=== PATIENT | female | born 1995 | race Caucasian/White ===

== ENCOUNTER 2022-10-13 23:51 | Emergency (ER) | payer OTHER, MEDICAID ==
[~2022-10-13] VITALS: Ht 175.3 cm; Wt 104.3 kg
[~2022-10-13 23:51] MED LIST: ALBU17AE13; ALBU8.5H8 IH; LAMICTAL; MONT-47 PO; VENL75TA54 PO
[2022-10-14 00:15] VITALS: BP_SYST 131; PULSE 85; RESP 16; TEMP 96.7; O2SAT 100
[2022-10-14] MEDS ORDERED: KETOROLAC TROMETHAMINE 30 MG VIAL IM ONE (02:00)
[2022-10-14 02:20] LABS: CLARITY/URINE HAZY (CLEAR); COLOR,URINE YELLOW (YELLOW)
[2022-10-14 02:21] LABS: BILIRUBIN,URINE NEGATIVE (NEGATIVE); BLOOD, URINE 2+ (NEGATIVE); GLUCOSE,URINE NEGATIVE (NEGATIVE); KETONES,URINE TRACE (NEGATIVE); LEUKOCYTE ESTERASE ,URINE NEGATIVE (NEGATIVE); NITRITE, URINE NEGATIVE (NEGATIVE); PROTEIN URINE NEGATIVE (NEGATIVE); UROBILINOGEN,URINE 0.2 (0.2-1.0)
[2022-10-14 02:23] LABS: BACTERIA,URINE None Seen /HPF (None Seen); WBC,URINE 0-3 /HPF (0-3)
[2022-10-14 02:56] LABS: BASOPHILS # (AUTO) 0.1 K/uL (0.0-0.2); EOSINOPHILS # (AUTO) 0.3 K/uL (0.0-0.4); EOSINOPHILS % (AUTO) 3.1 % (0.0-4.0); HEMATOCRIT 36.5 % (36-48); HEMOGLOBIN 12.4 g/dL (12.0-16.0); LYMPHOCYTES # (AUTO) 3.1 K/uL (1.0-5.5); LYMPHOCYTES % (AUTO) 29.5 % (20.5-51.5); MEAN CORPUSCULAR HEMOGLOBIN 27 pg (27-31); MEAN CORPUSCULAR HGB CONC 34 % (32-36); MEAN CORPUSCULAR VOLUME 79 fL (79.0-98.0); MONOCYTES # (AUTO) 0.8 K/uL (0.0-1.0); MONOCYTES % (AUTO) 8.1 % (1.7-9.3); NEUTROPHILS # (AUTO) 6.1 K/uL (1.8-7.7); NEUTROPHILS % (AUTO) 58.3 % (40.0-70.0); PLATELET COUNT (AUTO) 353 K/uL (130-430); RED BLOOD CELL COUNT(AUTO) 4.65 MIL/uL (4.2-6.2); RED CELL DISTRIBUTION WIDTH 14.3 % (9.0-15.0); WHITE BLOOD COUNT (AUTO) 10.4 K/uL (4.8-10.8)
[2022-10-14 03:14] LABS: CALCIUM 8.1 mg/dL (8.4-11.0); CREATININE 0.61 mg/dL (0.55-1.30); POTASSIUM 3.9 mmol/L (3.5-5.1)
[2022-10-14 03:19] LABS: ALBUMIN 3.2 g/dL (3.4-4.8); TOTAL BILIRUBIN 0.3 mg/dL (0.0-1.0); TOTAL PROTEIN, SERUM 6.1 g/dL (6.4-8.3)
[2022-10-14] MEDS ORDERED: fentaNYL CITRATE/PF 100 MCG/2 ML AMP IM ONE ×2 (04:30→08:45)
[2022-10-14 07:55] VITALS: BP_SYST 133; PULSE 83; RESP 18; TEMP 98; O2SAT 100
[2022-10-14] MEDS ORDERED: fentaNYL CITRATE/PF 100 MCG/2 ML AMP ONE (07:59)
== END 2022-10-14 08:48 | disposition home or self-care (01) ==
LOC: SED 23:51
DX: R10.32 Left lower quadrant pain (principal); J45.909 Unspecified asthma, uncomplicated; Z88.1 Allergy status to other antibiotic agents; Z88.2 Allergy status to sulfonamides; Z79.899 Other long term (current) drug therapy
CPT/HCPCS: 99285; 80053; 81000; 83690; 85025; 36415; 74176; 76830; 76856; 76376; 96372; J1885; J3010

== ENCOUNTER 2022-12-29 11:54 | Emergency (ER) | payer OTHER, MEDICAID ==
[~2022-12-29] VITALS: Ht 175.3 cm; Wt 122.5 kg
[2022-12-29] MEDS ORDERED: ONDANSETRON 4 MG ODT TAB PO ONE (12:15)
[2022-12-29] MEDS ORDERED: PANTOPRAZOLE SODIUM 40 MG TAB PO ONE (12:15)
[2022-12-29 12:24] VITALS: BP_SYST 144; PULSE 114; RESP 20; TEMP 98.2; O2SAT 97
[2022-12-29 12:50] LABS: ACETONE, SERUM NEGATIVE (NEGATIVE)
[2022-12-29 12:54] LABS: BASOPHILS % (AUTO) 0.4 % (0.0-2.0); EOSINOPHILS % (AUTO) 0.1 % (0.0-4.0); HEMATOCRIT 37.6 % (36-48); HEMOGLOBIN 12.5 g/dL (12.0-16.0); LYMPHOCYTES # (AUTO) 0.5 K/uL (1.0-5.5); LYMPHOCYTES % (AUTO) 4.3 % (20.5-51.5); MEAN CORPUSCULAR HEMOGLOBIN 26 pg (27-31); MEAN CORPUSCULAR HGB CONC 33 % (32-36); MEAN CORPUSCULAR VOLUME 78 fL (79.0-98.0); MONOCYTES # (AUTO) 1.3 K/uL (0.0-1.0); MONOCYTES % (AUTO) 11.6 % (1.7-9.3); NEUTROPHILS # (AUTO) 9.7 K/uL (1.8-7.7); NEUTROPHILS % (AUTO) 83.6 % (40.0-70.0); PLATELET COUNT (AUTO) 314 K/uL (130-430); RED CELL DISTRIBUTION WIDTH 13.8 % (9.0-15.0); WHITE BLOOD COUNT (AUTO) 11.6 K/uL (4.8-10.8)
[2022-12-29 12:59] LABS: ANION GAP 11 (5-15); CALCIUM 9.1 mg/dL (8.4-11.0); CARBON DIOXIDE 23 mmol/L (23-29); CHLORIDE 100 mmol/L (98-107); CREATININE 0.91 mg/dL (0.55-1.30); GFR AFRICAN AMERICAN 95 mL/min (>90); GLUCOSE 135 mg/dL (74-106); POTASSIUM 3.6 mmol/L (3.5-5.1); SERUM HCG (QUALITATIVE) NEGATIVE (NEGATIVE); SODIUM SERUM 134 mmol/L (136-145); UREA NITROGEN, BLOOD 12 mg/dL (8-21)
[2022-12-29 13:00] LABS: GFR NON AFRICAN-AMERICAN 78 mL/min (>90)
[2022-12-29 13:03] LABS: ALANINE AMINOTRANSFERASE 23 U/L (12-78); ALBUMIN 3.1 g/dL (3.4-4.8); AMYLASE 56 U/L (0-100); ASPARTATE AMINOTRANSFERASE 10 U/L (10-37); LIPASE 19 U/L (16-77); TOTAL BILIRUBIN 0.9 mg/dL (0.0-1.0); TOTAL PROTEIN, SERUM 7.2 g/dL (6.4-8.3)
[2022-12-29 14:12] LABS: BILIRUBIN,URINE NEGATIVE (NEGATIVE); BLOOD, URINE 1+ (NEGATIVE); CLARITY/URINE TURBID (CLEAR); COLOR,URINE YELLOW (YELLOW); GLUCOSE,URINE NEGATIVE (NEGATIVE); KETONES,URINE 1+ (NEGATIVE); LEUKOCYTE ESTERASE ,URINE 1+ (NEGATIVE); PH,URINE 6.5 (5.0-8.0); PROTEIN URINE 1+ (NEGATIVE)
[2022-12-29 14:13] LABS: BACTERIA,URINE MANY /HPF (None Seen); NITRITE, URINE POSITIVE (NEGATIVE); UROBILINOGEN,URINE 0.2 (0.2-1.0); WBC,URINE 20-50 /HPF (0-3)
[2022-12-29 14:14] LABS: MUCUS,URINE None Seen /LPF (None Seen)
[2022-12-29] MEDS ORDERED: ONDA-8 TL (14:30)
[2022-12-29] MEDS ORDERED: DICYCLOMINE HCL 10 MG/5 ML SOLUTION PO ONE (14:32)
[2022-12-29] MEDS ORDERED: MAG-AL HYDROX/SIMETH 30 ML UDC PO ONE (14:45)
[2022-12-29] MEDS ORDERED: LIDOCAINE VISCOUS 2%, 15 ML UDC PO ONE (14:45)
[2022-12-29 15:02] VITALS: BP_SYST 122; PULSE 114; RESP 20; TEMP 98.2; O2SAT 97
[2022-12-30] MEDS ORDERED: NEU300 PO (02:03)
[2022-12-30] MEDS ORDERED: DULO60CA42 PO (02:03)
[2022-12-30] MEDS ORDERED: FLUT12AE5 IH (02:03)
== END 2022-12-29 15:02 | disposition home or self-care (01) ==
LOC: SED 11:54
DX: K29.70 Gastritis, unspecified, without bleeding (principal); R10.13 Epigastric pain; R11.2 Nausea with vomiting, unspecified; J45.909 Unspecified asthma, uncomplicated; Z88.1 Allergy status to other antibiotic agents; Z88.2 Allergy status to sulfonamides; Z88.8 Allergy status to other drugs, medicaments and biological substances; Z79.899 Other long term (current) drug therapy
CPT/HCPCS: 99284; 76705; 80053; 81000; 82009; 82150; 84703; 83690; 85025; 87086; 36415; 83605; 81015; Q0162; J2001; 81001

== ENCOUNTER 2022-12-30 00:03 | Inpatient (IN) | payer OTHER, MEDICAID ==
[~2022-12-30] VITALS: Ht 175.3 cm; Wt 122.5 kg
[2022-12-30] VITALS (9 sets, daily range): BP systolic 111–129; PULSE 70–103; RESP 16–18; TEMP 97–98.9; O2SAT 95–97
[~2022-12-30 00:03] MED LIST changes: +ONDA-8 TL
[2022-12-30] MEDS ORDERED: METOCLOPRAMIDE HCL 10 MG/2 ML VIAL IVP ONE (00:30)
[2022-12-30] MEDS ORDERED: NACL 0.9% 1,000 ML IV ONE (00:30)
[2022-12-30 01:01] LABS: BASOPHILS % (AUTO) 0.4 % (0.0-2.0); HEMATOCRIT 36.5 % (36-48); HEMOGLOBIN 12.4 g/dL (12.0-16.0); LYMPHOCYTES # (AUTO) 0.7 K/uL (1.0-5.5); LYMPHOCYTES % (AUTO) 6.8 % (20.5-51.5); MEAN CORPUSCULAR HEMOGLOBIN 27 pg (27-31); MEAN CORPUSCULAR HGB CONC 34 % (32-36); MEAN CORPUSCULAR VOLUME 78 fL (79.0-98.0); MONOCYTES # (AUTO) 1.4 K/uL (0.0-1.0); MONOCYTES % (AUTO) 12.6 % (1.7-9.3); NEUTROPHILS # (AUTO) 8.8 K/uL (1.8-7.7); NEUTROPHILS % (AUTO) 80.2 % (40.0-70.0); PLATELET COUNT (AUTO) 326 K/uL (130-430); RED BLOOD CELL COUNT(AUTO) 4.65 MIL/uL (4.2-6.2); RED CELL DISTRIBUTION WIDTH 14.5 % (9.0-15.0)
[2022-12-30 01:21] LABS: CALCIUM 9.2 mg/dL (8.4-11.0); CREATININE 0.95 mg/dL (0.55-1.30); POTASSIUM 3.4 mmol/L (3.5-5.1); TOTAL BILIRUBIN 1.1 mg/dL (0.0-1.0); TOTAL PROTEIN, SERUM 7.3 g/dL (6.4-8.3)
[2022-12-30] MEDS ORDERED: cefTRIAXone 2 GM VIAL ONE (01:37)
[2022-12-30] MEDS ORDERED: FLUT12AE5 IH (02:03)
[2022-12-30] MEDS ORDERED: NEU300 PO (02:03)
[2022-12-30] MEDS ORDERED: DULO60CA42 PO (02:03)
[2022-12-30] MEDS: NACL 0.9% 1,000 ML IV SCH ×3 (04:06→21:27)
[2022-12-30] MEDS: ONDANSETRON HCL 4 MG/2 ML VIAL IVP PRN ×2 (04:46→22:09)
[2022-12-30] MEDS: METOCLOPRAMIDE HCL 10 MG/2 ML VIAL IVP PRN ×2 (10:39→17:12)
[2022-12-30] MEDS ORDERED: SALMETEROL IH SCH (11:00)
[2022-12-30] MEDS ORDERED: GABAPENTIN 300 MG CAPSULE PO PRN (11:00)
[2022-12-30] MEDS ORDERED: FLUTICASONE IH SCH (11:00)
[2022-12-30] MEDS ORDERED: BUDESONIDE 0.5 MG/2 ML AMPUL.NEB INH ONE (11:15)
[2022-12-30] MEDS ORDERED: DULoxetine HCL 20 MG CAPSULE.DR PO ONE (11:15)
[2022-12-30] MEDS ORDERED: ALBUTEROL SULFATE 0.083% 2.5 MG/3 ML VIAL.NEB INH ONE (11:15)
[2022-12-30] MEDS ORDERED: FAMOTIDINE 20 MG TABLET PO ONE (12:45)
[2022-12-30] MEDS ORDERED: METOCLOPRAMIDE HCL 10 MG/2 ML VIAL IVP PRN (12:45)
[2022-12-30] MEDS ORDERED: DOCUSATE SODIUM 250 MG CAPSULE PO ONE (13:00)
[2022-12-30] MEDS ORDERED: BISACODYL 5 MG TABLET.DR (DULCOLAX) PO PRN (13:00)
[2022-12-30 15:40] LABS: BILIRUBIN,URINE NEGATIVE (NEGATIVE); BLOOD, URINE 1+ (NEGATIVE); CLARITY/URINE CLEAR (CLEAR); COLOR,URINE YELLOW (YELLOW); GLUCOSE,URINE NEGATIVE (NEGATIVE); KETONES,URINE 1+ (NEGATIVE); LEUKOCYTE ESTERASE ,URINE NEGATIVE (NEGATIVE); NITRITE, URINE NEGATIVE (NEGATIVE); PH,URINE 6.5 (5.0-8.0); PROTEIN URINE 1+ (NEGATIVE); UROBILINOGEN,URINE 0.2 (0.2-1.0)
[2022-12-30 15:55] LABS: BACTERIA,URINE MODERATE /HPF (None Seen); MUCUS,URINE None Seen /LPF (None Seen)
[2022-12-30 16:01] LABS: BARBITURATE, URINE NEGATIVE (NEG <=200); BENZODIAZEPINE, URINE NEGATIVE (NEG <=150); CANNABINOID, URINE POSITIVE (NEG <=50); COCAINE, URINE NEGATIVE (NEG <=150); METHAMPHETAMINES SCREEN,URINE NEGATIVE (NEG <=500); PHENCYCLIDINE SCREEN,URINE NEGATIVE (NEG <=25); URINE AMPHETAMINE NEGATIVE (NEG <=500); URINE METHADONE NEGATIVE (NEG <=200); URINE OXYCODONE SCREEN NEGATIVE (NEG <=100)
[2022-12-30 16:02] LABS: OPIATE, URINE POSITIVE (NEG <=100); UR TRICYCLIC ANTIDEPRESSANTS NEGATIVE (NEG <=300); URINE PROPOXYPHENE SCREEN NEGATIVE (NEG <=300)
[2022-12-30] MEDS: DOCUSATE SODIUM 250 MG CAPSULE PO SCH (21:19)
[2022-12-30] MEDS: FAMOTIDINE 20 MG TABLET PO SCH (21:20)
[2022-12-30] MEDS: TEMAZEPAM 7.5 MG CAPSULE PO PRN (22:43)
[2022-12-31] VITALS (10 sets, daily range): BP systolic 118–132; PULSE 73–105; RESP 16–20; TEMP 96.7–98.9; O2SAT 96–98
[2022-12-31] MEDS: NACL 0.9% 1,000 ML IV SCH ×2 (02:32→18:47)
[2022-12-31 05:15] LABS: BASOPHILS % (AUTO) 0.5 % (0.0-2.0); EOSINOPHILS % (AUTO) 0.2 % (0.0-4.0); HEMATOCRIT 30.5 % (36-48); HEMOGLOBIN 10.1 g/dL (12.0-16.0); LYMPHOCYTES % (AUTO) 13.7 % (20.5-51.5); MEAN CORPUSCULAR HEMOGLOBIN 26 pg (27-31); MEAN CORPUSCULAR HGB CONC 33 % (32-36); MEAN CORPUSCULAR VOLUME 79 fL (79.0-98.0); MONOCYTES % (AUTO) 12.9 % (1.7-9.3); NEUTROPHILS # (AUTO) 5.4 K/uL (1.8-7.7); NEUTROPHILS % (AUTO) 72.7 % (40.0-70.0); PLATELET COUNT (AUTO) 265 K/uL (130-430); RED BLOOD CELL COUNT(AUTO) 3.89 MIL/uL (4.2-6.2); RED CELL DISTRIBUTION WIDTH 14.1 % (9.0-15.0); WHITE BLOOD COUNT (AUTO) 7.5 K/uL (4.8-10.8)
[2022-12-31] MEDS: METOCLOPRAMIDE HCL 10 MG/2 ML VIAL IVP PRN ×3 (05:26→19:01)
[2022-12-31 05:42] LABS: ALBUMIN 2.3 g/dL (3.4-4.8); CALCIUM 8.8 mg/dL (8.4-11.0); CREATININE 0.8 mg/dL (0.55-1.30); PHOSPHORUS 2.6 mg/dL (2.7-4.5); POTASSIUM 3.6 mmol/L (3.5-5.1); TOTAL BILIRUBIN 0.6 mg/dL (0.0-1.0); TOTAL PROTEIN, SERUM 6.1 g/dL (6.4-8.3)
[2022-12-31] MEDS: ALBUTEROL SULFATE 0.083% 2.5 MG/3 ML VIAL.NEB INH SCH ×4 (05:43→19:58)
[2022-12-31] MEDS: BUDESONIDE 0.5 MG/2 ML AMPUL.NEB INH SCH ×2 (07:41→19:59)
[2022-12-31] MEDS: DULoxetine HCL 20 MG CAPSULE.DR PO SCH (09:43)
[2022-12-31] MEDS: DOCUSATE SODIUM 250 MG CAPSULE PO SCH (09:43)
[2022-12-31] MEDS: FAMOTIDINE 20 MG TABLET PO SCH ×2 (09:43→20:32)
[2022-12-31] MEDS: TEMAZEPAM 7.5 MG CAPSULE PO PRN (23:27)
[2023-01-01] VITALS (9 sets, daily range): BP systolic 104–119; PULSE 74–85; RESP 17–18; TEMP 96.3–98.9; O2SAT 95–99
[2023-01-01] MEDS: ALBUTEROL SULFATE 0.083% 2.5 MG/3 ML VIAL.NEB INH SCH ×3 (01:09→13:38)
[2023-01-01] MEDS: METOCLOPRAMIDE HCL 10 MG/2 ML VIAL IVP PRN ×2 (03:12→12:01)
[2023-01-01 04:19] LABS: BASOPHILS % (AUTO) 0.5 % (0.0-2.0); EOSINOPHILS # (AUTO) 0.1 K/uL (0.0-0.4); EOSINOPHILS % (AUTO) 0.9 % (0.0-4.0); HEMATOCRIT 31.4 % (36-48); HEMOGLOBIN 10.4 g/dL (12.0-16.0); LYMPHOCYTES # (AUTO) 1.5 K/uL (1.0-5.5); LYMPHOCYTES % (AUTO) 24.1 % (20.5-51.5); MEAN CORPUSCULAR HEMOGLOBIN 26 pg (27-31); MEAN CORPUSCULAR HGB CONC 33 % (32-36); MEAN CORPUSCULAR VOLUME 78 fL (79.0-98.0); MONOCYTES # (AUTO) 0.6 K/uL (0.0-1.0); MONOCYTES % (AUTO) 10.3 % (1.7-9.3); NEUTROPHILS % (AUTO) 64.2 % (40.0-70.0); PLATELET COUNT (AUTO) 287 K/uL (130-430); RED CELL DISTRIBUTION WIDTH 14.4 % (9.0-15.0); WHITE BLOOD COUNT (AUTO) 6.2 K/uL (4.8-10.8)
[2023-01-01 04:47] LABS: TOTAL IRON BIND. CAPACITY 179 ug/dL (250-450)
[2023-01-01 04:49] LABS: ALBUMIN 2.5 g/dL (3.4-4.8); CALCIUM 9.1 mg/dL (8.4-11.0); CREATININE 0.76 mg/dL (0.55-1.30); FREE T4 (FREE THYROXINE) 1.3 ng/dL (0.6-1.6); POTASSIUM 3.1 mmol/L (3.5-5.1); THYROID STIMULATING HORMONE 4.11 uIu/mL (0.34-4.82); TOTAL BILIRUBIN 0.4 mg/dL (0.0-1.0); TOTAL PROTEIN, SERUM 6.3 g/dL (6.4-8.3)
[2023-01-01] MEDS: NACL 0.9% 1,000 ML IV SCH ×2 (07:04→13:41)
[2023-01-01] MEDS ORDERED: HYDROCORTISONE 2.5%, 30 GM TOPICAL CREAM TP PRN (07:30)
[2023-01-01] MEDS: BUDESONIDE 0.5 MG/2 ML AMPUL.NEB INH SCH (07:34)
[2023-01-01] MEDS: DULoxetine HCL 20 MG CAPSULE.DR PO SCH (08:34)
[2023-01-01] MEDS ORDERED: PANTOPRAZOLE SODIUM 40 MG/VIAL (PROTONIX) IVP SCH (09:00)
[2023-01-01] MEDS ORDERED: TEMAZEPAM 15 MG CAPSULE PO PRN (12:15)
[2023-01-01] MEDS ORDERED: POTASSIUM CHLORIDE 20 MEQ TAB.PRT.SR PO ONE (14:00)
[2023-01-01] MEDS ORDERED: NALOXONE HCL 0.4 MG/ML AMP (NARCAN) IVP PRN (14:30)
[2023-01-01] MEDS ORDERED: ACETAMINOPHEN 325 MG TABLET PO PRN (14:30)
[2023-01-01] MEDS ORDERED: traMADol HCL HCL 50 MG TABLET (ULTRAM) PO PRN (14:30)
[2023-01-01] MEDS ORDERED: HYDROcodone/ACETAMIN 5-325 MG TAB (NORCO/ VICODIN) PO PRN (14:30)
[2023-01-01] MEDS ORDERED: LEVO-62 PO (16:46)
[2023-01-01] MEDS ORDERED: LACT1CAP89 PO (16:47)
[2023-01-01] MEDS ORDERED: POTA-197 PO (17:00)
[2023-01-01] MEDS ORDERED: MULT-1117 PO (17:02)
[2023-01-01] MEDS ORDERED: FER300L PO (17:02)
[2023-01-02] MEDS ORDERED: POTASSIUM CHLORIDE 20 MEQ TAB.PRT.SR PO SCH (09:00)
== END 2023-01-01 19:19 | disposition home or self-care (01) | DRG 689 ==
LOC: SED 00:03 → SMU 01:54
PROVIDERS: ADMIT Internal Medicine; ATTEND Internal Medicine
DX: N12 Tubulo-interstitial nephritis, not specified as acute or chronic (principal); E43 Unspecified severe protein-calorie malnutrition; K92.1 Melena; F12.90 Cannabis use, unspecified, uncomplicated; K64.9 Unspecified hemorrhoids; E86.0 Dehydration; E87.6 Hypokalemia; E66.9 Obesity, unspecified; K76.0 Fatty (change of) liver, not elsewhere classified; Z89.512 Acquired absence of left leg below knee; Z68.39 Body mass index [BMI] 39.0-39.9, adult; Z79.899 Other long term (current) drug therapy; Z88.2 Allergy status to sulfonamides; Z88.1 Allergy status to other antibiotic agents
CPT/HCPCS: 36415; 76376; 80053; 80307; 81000; 81001; 81015; 82607; 82746; 83540; 83550; 83605; 83690; 83735; 84100; 84439; 84443; 84702; 85025; 87040; 94640; 94760; 97110-GP; 97163-GP; 97530-GP; 99285; C9113; J0696; J1956; J2405; J2765; J7626; Q9967

== ENCOUNTER 2023-02-06 00:02 | Emergency (ER) | payer OTHER, MEDICAID ==
[~2023-02-06 00:02] MED LIST changes: -ALBU17AE13; -ALBU8.5H8 IH; +DULO60CA42 PO; +FER300L PO; +FLUT12AE5 IH; +LACT1CAP89 PO; -LAMICTAL; +LEVO-62 PO; -MONT-47 PO; +MULT-1117 PO; +NEU300 PO; -ONDA-8 TL; +POTA-197 PO; -VENL75TA54 PO
[2023-02-06 00:18] VITALS: BP_SYST 135; PULSE 92; RESP 20; TEMP 97; O2SAT 97
[2023-02-06] MEDS ORDERED: MORPHINE 4 MG INJ. 4 MG/ML VIAL IM ONE (01:45)
[2023-02-06] MEDS ORDERED: IBUP-1969 PO (03:03)
[2023-02-06 03:12] VITALS: BP_SYST 135; PULSE 92; RESP 20; TEMP 97; O2SAT 97
== END 2023-02-06 03:12 | disposition home or self-care (01) ==
LOC: SED 00:02
DX: S52.612A Displaced fracture of left ulna styloid process, initial encounter for closed fracture (principal); J45.909 Unspecified asthma, uncomplicated; Z88.1 Allergy status to other antibiotic agents; Z88.2 Allergy status to sulfonamides; Z79.899 Other long term (current) drug therapy; X50.0XXA Overexertion from strenuous movement or load, initial encounter; Y93.89 Activity, other specified; Y92.89 Other specified places as the place of occurrence of the external cause; Y99.8 Other external cause status
CPT/HCPCS: 99283; 73110; 29125; 96372; J2270

== ENCOUNTER 2023-04-10 17:07 | Emergency (ER) | payer OTHER, MEDICAID ==
[~2023-04-10] VITALS: Ht 175.3 cm; Wt 117.9 kg
[~2023-04-10 17:07] MED LIST changes: +IBUP-1969 PO
[2023-04-10 17:10] VITALS: BP_SYST 120; PULSE 89; RESP 19; TEMP 97; O2SAT 97
[2023-04-10 18:16] LABS: BASOPHILS # (AUTO) 0.1 K/uL (0.0-0.2); BASOPHILS % (AUTO) 0.8 % (0.0-2.0); EOSINOPHILS # (AUTO) 0.7 K/uL (0.0-0.4); EOSINOPHILS % (AUTO) 7.9 % (0.0-4.0); HEMATOCRIT 37.7 % (36-48); HEMOGLOBIN 13.5 g/dL (12.0-16.0); LYMPHOCYTES % (AUTO) 22.7 % (20.5-51.5); MEAN CORPUSCULAR HEMOGLOBIN 29 pg (27-31); MEAN CORPUSCULAR HGB CONC 36 % (32-36); MEAN CORPUSCULAR VOLUME 80 fL (79.0-98.0); MONOCYTES # (AUTO) 0.7 K/uL (0.0-1.0); MONOCYTES % (AUTO) 7.7 % (1.7-9.3); NEUTROPHILS # (AUTO) 5.5 K/uL (1.8-7.7); NEUTROPHILS % (AUTO) 60.9 % (40.0-70.0); PLATELET COUNT (AUTO) 350 K/uL (130-430); RED BLOOD CELL COUNT(AUTO) 4.72 MIL/uL (4.2-6.2); RED CELL DISTRIBUTION WIDTH 14.7 % (9.0-15.0)
[2023-04-10 18:35] LABS: ALBUMIN 3.5 g/dL (3.4-4.8); BILIRUBIN,DIRECT 0.1 mg/dL (0.0-0.3); CALCIUM 8.3 mg/dL (8.4-11.0); CREATININE 0.76 mg/dL (0.55-1.30); POTASSIUM 4.1 mmol/L (3.5-5.1); TOTAL BILIRUBIN 0.4 mg/dL (0.0-1.0); TOTAL PROTEIN, SERUM 6.9 g/dL (6.4-8.3)
[2023-04-10 20:14] LABS: BILIRUBIN,URINE NEGATIVE (NEGATIVE); BLOOD, URINE NEGATIVE (NEGATIVE); CLARITY/URINE CLEAR (CLEAR); COLOR,URINE YELLOW (YELLOW); GLUCOSE,URINE NEGATIVE (NEGATIVE); KETONES,URINE NEGATIVE (NEGATIVE); LEUKOCYTE ESTERASE ,URINE NEGATIVE (NEGATIVE); NITRITE, URINE NEGATIVE (NEGATIVE); PH,URINE 6.5 (5.0-8.0); PROTEIN URINE NEGATIVE (NEGATIVE); UROBILINOGEN,URINE 0.2 (0.2-1.0)
[2023-04-10] MEDS: ONDANSETRON 4 MG ODT TAB PO ONE (21:10)
[2023-04-10] MEDS: MAG HYDROX/AL HYDROX/SIMETH 30 ML, DICYCLOMINE HCL 20 MG, LIDOCAINE VISCOUS 2% 15ML (PO... PO ONE (21:14)
[2023-04-10] MEDS ORDERED: ONDANSETRON HCL 4 MG/2 ML VIAL IVP PRN (22:15)
[2023-04-10] MEDS ORDERED: HYDROcodone/ACETAMIN 5-325 MG TAB (NORCO/ VICODIN) PO PRN (22:15)
[2023-04-10] MEDS ORDERED: FAMO-132 PO (22:15)
[2023-04-10] MEDS ORDERED: IBUPROFEN 600 MG TABLET PO SCH (22:15)
[2023-04-10] MEDS ORDERED: LORazepam 2 MG/ML VIAL IVP PRN (22:15)
[2023-04-10] MEDS ORDERED: GABAPENTIN 300 MG CAPSULE PO SCH (22:15)
[2023-04-10] MEDS ORDERED: ACETAMINOPHEN 325 MG TABLET PO PRN (22:15)
[2023-04-10] MEDS ORDERED: HYDROcodone/ACETAMIN 10-325 MG TAB PO PRN (22:15)
[2023-04-10 22:23] VITALS: BP_SYST 124; PULSE 71; RESP 20; TEMP 98; O2SAT 96
[2023-04-11] MEDS ORDERED: NORMAL SALINE 5 ML DISP.SYRIN IVF SCH (06:00)
[2023-04-11] MEDS ORDERED: SALMETEROL IH SCH (09:00)
[2023-04-11] MEDS ORDERED: MULTIVITAMINS TAB 1 TABLET PO SCH (09:00)
[2023-04-11] MEDS ORDERED: FLUTICASONE IH SCH (09:00)
[2023-04-11] MEDS ORDERED: FERROUS SULFATE 300 MG/5 ML UDC PO SCH (09:00)
[2023-04-11] MEDS ORDERED: POTASSIUM CHLORIDE 20 MEQ TABLET.ER PO SCH (09:00)
[2023-04-11] MEDS ORDERED: LACTOBACILLUS ACIDOPHILUS PO SCH (09:00)
[2023-04-11] MEDS ORDERED: levoFLOXacin 500 MG TABLET PO SCH (09:00)
[2023-04-11] MEDS ORDERED: DULoxetine HCL 30 MG CAPSULE.DR (CYMBALTA) PO SCH (09:00)
== END 2023-04-10 22:20 | disposition home or self-care (01) ==
LOC: SED 17:07
DX: R10.84 Generalized abdominal pain (principal); R10.13 Epigastric pain; J45.909 Unspecified asthma, uncomplicated; Z88.2 Allergy status to sulfonamides; Z88.1 Allergy status to other antibiotic agents; Z88.8 Allergy status to other drugs, medicaments and biological substances; Z79.899 Other long term (current) drug therapy; Z98.890 Other specified postprocedural states; Z96.642 Presence of left artificial hip joint; Z96.631 Presence of right artificial wrist joint
CPT/HCPCS: 99283; 80076; 80048; 81001; 83690; 85025; 36415; 81025; Q0162; 81003; J2001

== ENCOUNTER 2023-07-28 19:24 | Emergency (ER) | payer OTHER, MEDICAID ==
[~2023-07-28] VITALS: Ht 175.3 cm; Wt 117.9 kg
[~2023-07-28 19:24] MED LIST changes: +FAMO-132 PO
[2023-07-28 19:30] VITALS: BP_SYST 116; PULSE 86; RESP 22; TEMP 97; O2SAT 97
[2023-07-28] MEDS ORDERED: BUPR300T55 PO (19:44)
[2023-07-28] MEDS: ONDANSETRON HCL 4 MG/2 ML VIAL IVP ONE (20:00)
[2023-07-28] MEDS: MORPHINE 4 MG INJ. 4 MG/ML VIAL IVP ONE (20:01)
[2023-07-28 20:10] LABS: BASOPHILS % (AUTO) 0.6 % (0.0-2.0); EOSINOPHILS # (AUTO) 0.3 K/uL (0.0-0.4); EOSINOPHILS % (AUTO) 3.3 % (0.0-4.0); HEMATOCRIT 40.6 % (36-48); HEMOGLOBIN 14.1 g/dL (12.0-16.0); LYMPHOCYTES # (AUTO) 1.8 K/uL (1.0-5.5); MEAN CORPUSCULAR HEMOGLOBIN 27 pg (27-31); MEAN CORPUSCULAR HGB CONC 35 % (32-36); MEAN CORPUSCULAR VOLUME 79 fL (79.0-98.0); MONOCYTES # (AUTO) 0.8 K/uL (0.0-1.0); MONOCYTES % (AUTO) 9.1 % (1.7-9.3); NEUTROPHILS # (AUTO) 5.7 K/uL (1.8-7.7); PLATELET COUNT (AUTO) 322 K/uL (130-430); RED BLOOD CELL COUNT(AUTO) 5.13 MIL/uL (4.2-6.2); RED CELL DISTRIBUTION WIDTH 14.6 % (9.0-15.0); WHITE BLOOD COUNT (AUTO) 8.7 K/uL (4.8-10.8)
[2023-07-28] MEDS: NACL 0.9% 1,000 ML IV ONE (20:15)
[2023-07-28 20:27] LABS: ALBUMIN 3.5 g/dL (3.4-4.8); BILIRUBIN,DIRECT 0.1 mg/dL (0.0-0.3); CALCIUM 8.9 mg/dL (8.4-11.0); CREATININE 0.71 mg/dL (0.55-1.30); POTASSIUM 4.1 mmol/L (3.5-5.1); TOTAL BILIRUBIN 0.6 mg/dL (0.0-1.0); TOTAL PROTEIN, SERUM 7.6 g/dL (6.4-8.3)
[2023-07-28 20:28] LABS: BILIRUBIN,URINE NEGATIVE (NEGATIVE); BLOOD, URINE NEGATIVE (NEGATIVE); CLARITY/URINE CLEAR (CLEAR); COLOR,URINE YELLOW (YELLOW); GLUCOSE,URINE NEGATIVE (NEGATIVE); KETONES,URINE NEGATIVE (NEGATIVE); LEUKOCYTE ESTERASE ,URINE NEGATIVE (NEGATIVE); NITRITE, URINE NEGATIVE (NEGATIVE); PH,URINE 6.5 (5.0-8.0); PROTEIN URINE NEGATIVE (NEGATIVE); UROBILINOGEN,URINE 0.2 (0.2-1.0)
[2023-07-28] MEDS: METOCLOPRAMIDE HCL 10 MG/2 ML VIAL IVP ONE (22:13)
[2023-07-28] MEDS ORDERED: OMEP40CA20 PO (23:57)
[2023-07-28] MEDS ORDERED: METO-290 PO (23:57)
[2023-07-29 00:05] VITALS: BP_SYST 107; PULSE 72; RESP 16; TEMP 97.6; O2SAT 99
== END 2023-07-29 00:05 | disposition home or self-care (01) ==
LOC: SED 19:24
DX: R10.9 Unspecified abdominal pain (principal); R11.2 Nausea with vomiting, unspecified; M54.9 Dorsalgia, unspecified; F12.90 Cannabis use, unspecified, uncomplicated; J45.909 Unspecified asthma, uncomplicated; F41.9 Anxiety disorder, unspecified; Z88.1 Allergy status to other antibiotic agents; Z88.2 Allergy status to sulfonamides; Z88.8 Allergy status to other drugs, medicaments and biological substances; Z79.899 Other long term (current) drug therapy; Z79.2 Long term (current) use of antibiotics
CPT/HCPCS: 99285; 74176; 96374; 96375; 80076; 80048; 81001; 83690; 85025; 36415; J2765; J2405; J2270; 81003

== ENCOUNTER 2023-08-05 14:17 | Emergency (ER) | payer OTHER, MEDICAID ==
[~2023-08-05] VITALS: Ht 175.3 cm; Wt 117.9 kg
[~2023-08-05 14:17] MED LIST changes: +BUPR300T55 PO; -FER300L PO; -IBUP-1969 PO; -LACT1CAP89 PO; -LEVO-62 PO; +METO-290 PO; +OMEP40CA20 PO; -POTA-197 PO
[2023-08-05 14:33] VITALS: BP_SYST 119; PULSE 84; RESP 22; TEMP 98.3; O2SAT 98
[2023-08-05 15:20] LABS: BILIRUBIN,URINE NEGATIVE (NEGATIVE); BLOOD, URINE NEGATIVE (NEGATIVE); CLARITY/URINE CLEAR (CLEAR); COLOR,URINE YELLOW (YELLOW); GLUCOSE,URINE NEGATIVE (NEGATIVE); KETONES,URINE NEGATIVE (NEGATIVE); LEUKOCYTE ESTERASE ,URINE NEGATIVE (NEGATIVE); NITRITE, URINE NEGATIVE (NEGATIVE); PH,URINE 6.5 (5.0-8.0); PROTEIN URINE NEGATIVE (NEGATIVE); UROBILINOGEN,URINE 0.2 (0.2-1.0)
[2023-08-05 15:48] LABS: BASOPHILS # (AUTO) 0.1 K/uL (0.0-0.2); BASOPHILS % (AUTO) 0.7 % (0.0-2.0); EOSINOPHILS # (AUTO) 0.3 K/uL (0.0-0.4); EOSINOPHILS % (AUTO) 2.5 % (0.0-4.0); HEMATOCRIT 40.7 % (36-48); HEMOGLOBIN 13.8 g/dL (12.0-16.0); LYMPHOCYTES # (AUTO) 2.3 K/uL (1.0-5.5); LYMPHOCYTES % (AUTO) 20.4 % (20.5-51.5); MEAN CORPUSCULAR HEMOGLOBIN 27 pg (27-31); MEAN CORPUSCULAR HGB CONC 34 % (32-36); MEAN CORPUSCULAR VOLUME 79 fL (79.0-98.0); MONOCYTES # (AUTO) 0.8 K/uL (0.0-1.0); MONOCYTES % (AUTO) 7.2 % (1.7-9.3); NEUTROPHILS # (AUTO) 7.6 K/uL (1.8-7.7); NEUTROPHILS % (AUTO) 69.2 % (40.0-70.0); PLATELET COUNT (AUTO) 368 K/uL (130-430); RED BLOOD CELL COUNT(AUTO) 5.13 MIL/uL (4.2-6.2); RED CELL DISTRIBUTION WIDTH 14.6 % (9.0-15.0)
[2023-08-05 16:40] LABS: ALBUMIN 3.6 g/dL (3.4-4.8); BILIRUBIN,DIRECT 0.1 mg/dL (0.0-0.3); CREATININE 0.78 mg/dL (0.55-1.30); POTASSIUM 4.1 mmol/L (3.5-5.1); TOTAL BILIRUBIN 0.5 mg/dL (0.0-1.0)
[2023-08-05] MEDS: KETOROLAC TROMETHAMINE 60 MG/2 ML VIAL IM ONE (18:11)
[2023-08-05] MEDS: ONDANSETRON 4 MG ODT TAB PO ONE (18:12)
[2023-08-05] MEDS: METOCLOPRAMIDE HCL 10 MG TABLET PO ONE (19:42)
[2023-08-05] MEDS: HYDROcodone/ACETAMIN 10-325 MG TAB PO ONE (19:42)
[2023-08-05] MEDS ORDERED: TRAM50TA2 PO (22:10)
[2023-08-05] MEDS ORDERED: METO-290 PO (22:10)
[2023-08-05 23:05] VITALS: BP_SYST 119; PULSE 84; RESP 22; TEMP 98.3; O2SAT 98
== END 2023-08-05 23:02 | disposition home or self-care (01) ==
LOC: SED 14:17
DX: R10.9 Unspecified abdominal pain (principal); R11.0 Nausea; M54.9 Dorsalgia, unspecified; J45.909 Unspecified asthma, uncomplicated; F41.9 Anxiety disorder, unspecified; Z88.1 Allergy status to other antibiotic agents; Z88.2 Allergy status to sulfonamides; Z79.899 Other long term (current) drug therapy; Z79.2 Long term (current) use of antibiotics
CPT/HCPCS: 99285; 74176; 80076; 80048; 81001; 83690; 85025; 36415; 81025; 96372; Q0162; J1885; 81003; J8597